=== PATIENT | female | born 1990 | race Caucasian/White ===

== ENCOUNTER 2017-06-21 23:27 | Emergency (ER) | payer OTHER ==
[~2017-06-21] VITALS: Ht 157.5 cm; Wt 48.5 kg
[~2017-06-21 23:27] MED LIST: CONCERTA PO; CYMBALTA PO; EC-NAPROSYN500 MG PO; FLAGYL PO; KLONOPIN2 MG PO; LYBREL PO; ORUDIS75 M1 DOB; SEROQUEL PO; ULTRAM PO
[2017-06-22 00:56] LABS: URINE SOURCE CLEAN CATCH
[2017-06-22 01:08] LABS: URINE APPEARANCE CLEAR; URINE BILIRUBIN NEG (NEG); URINE BLOOD NEG (NEG); URINE COLOR YELLOW; URINE GLUCOSE NEG (NEG); URINE KETONE NEG (NEG); URINE LEUKOCYTE ESTERASE 2+ (NEG); URINE NITRATE POS (NEG); URINE PROTEIN NEG (NEG); URINE SPECIFIC GRAVITY 1.022 (1.003-1.035)
[2017-06-22 01:10] LABS: URINE BACTERIA AUWI 4+ (NEGATIVE); URINE SQUAMOUS EPITHELIAL CELL FEW /[HPF]; UWBCS1 AUWI 50-100 (0-5)
== END 2017-06-22 02:10 | disposition home or self-care (01) ==
LOC: CED 23:27
PROVIDERS: Emergency Medicine
DX: S33.5XXA Sprain of ligaments of lumbar spine, initial encounter (principal); N39.0 Urinary tract infection, site not specified; F17.200 Nicotine dependence, unspecified, uncomplicated; X58.XXXA Exposure to other specified factors, initial encounter
CPT/HCPCS: 81003; 84703; 96372; 99284; J1885